=== PATIENT | male | born 1965 | race Caucasian/White ===

== ENCOUNTER 2022-07-15 21:05 | Emergency (ER) | payer BC, SELFPAY ==
--- NOTE | 2022-07-15 21:10 | ED.GENADULT ---
HPI - General Adult General Time Seen by Provider: 21:10 Date Seen: 07/15/22 Chief complaint: Nausea/Vomiting Stated complaint: Nausea and Vomiting post THC Time Seen by Provider: 07/15/22 21:09 Source: patient, EMS and RN notes reviewed Mode of arrival: EMS ([email or web address]) Limitations: no limitations History of Present Illness HPI narrative: Patient was brought in by [email or web address] and his came with. They had tried a new THC gummy that they had not taken before. It had 4735mg in it. He took a full 1, his only took a half. He started feeling dizzy, not spinning but really dizzy and nausea with it. He felt like he was hallucinating like he was in a dream. He does not want open is eyes as it makes him feel worse right now. He has no pain anywhere. Still has some nausea. No chest pain, no difficulty breathing. He just feels like he is in a dream. His states she mildly feels that way. They do not use gummies all the time but occasionally will do so. They have never tried this particular 1 before. They use the gum is sometimes to just help relax and sleep. In his past medical history he has high cholesterol, hypertension, anxiety. Related Data Home Medications Medication Instructions Recorded Confirmed atorvastatin 40 mg tablet 40 mg PO DAILY cholesterol 07/15/22 07/15/22 lisinopril 20 mg tablet 20 mg PO DAILY blood pressure 07/15/22 07/15/22 sertraline 50 mg tablet 50 mg PO QAM 07/15/22 07/15/22 Allergies Allergy/AdvReac Type Severity Reaction Status Date / Time No Known Drug Allergies Allergy Verified 07/15/22 21:14 Review of Systems Status of ROS: Reports: 10 or more systems reviewed and unremarkable except as noted in History and below PFSH PFSH Social History Smoking Status: Unknown if ever smoked Do you use any of these nicotine containing products: None How often do you have a drink containing alcohol: never AUDIT-C Alcohol total score: 0 Non-prescribed substance use: marijuana (any form) Non-prescribed substance use details: thc gummies Exam Const: Vital Signs, click to edit/add: Vital Signs - 24 hr 07/15/22 21:11 Temperature 98.1 F Pulse Rate [Left P ulse Oximeter] 84 Respiratory Rate 18 Blood Pressure [Ri ght Upper Arm] 110/72 Pulse Oximetry 98 Documenting provider has reviewed patient's vital signs: yes Common normals: average body habitus, oriented x3, no limitations, healthy appearing, alert and well nourished Other: Maybe seems slightly pale. Pupils are about 5 mm, reactive, mostly holds his eyes closed. Sclera with slight injection. Following commands, is able to speak with me and is pleasant. HENMT: Common normals: normocephalic, head/scalp atraumatic, hearing grossly normal bilaterally, external ears normal, external nose normal, moist oral mucous membranes, oropharynx normal, dentition normal and gingiva normal Head and scalp: normocephalic and atraumatic Nose: external nose normal External ear: external ears normal Eye: Common normals: PERRL, EOMs intact bilaterally and no scleral icterus Pupil: PERRL Neck & C-Spine: Common normals: full ROM, no lymphadenopathy and supple Resp: Common normals: normal respiratory effort, no retractions, no use of accessory muscles and clear to auscultation bilaterally Auscultation: clear to auscultation bilaterally Cardio: Common normals: regular rate, regular rhythm, S1 normal heart sound, S2 normal heart sound, no gallops, no clicks and no murmurs Rate: regular rate Rhythm: regular rhythm Heart sounds: S1 normal and S2 normal GI: Common normals: Normal to inspection, nondistended, normoactive bowel sounds present, soft to palpation, non-tender, no hepatosplenomegaly and no masses Palpation: soft and no hepatosplenomegaly Extremity: Common normals: normal to inspection Neuro: Common normals: oriented x3, CN's II-XII intact bilaterally, moves all extremities, no focal motor deficits and no sensory deficits noted Sensorium/orientation: alert Course Course Hospital Course: Have reviewed with patient and his that there really is nothing I can do to prevent the action of the THC he took. This is something he is going to just have to ride out. We can try some benzodiazepines, did warn them that they might make him feel even possibly worse but most people do find some relief with benzodiazepine use. Reevaluation(s) Reevaluation #1: Patient threw up his Ativan immediately per nursing staff. Will place IV, give NS bolus, zofran and IV ativan. May need to consider zyprexa for him. His told nursing staff that she was hoping that they could sleep it off here and go home in the morning. Time: 21:34 Reevaluation #2: Patient has the IV fluid running. His color is improving a bit. He states he just can not open his eyes or things just feel distorted. Makes him feel worse. He is having no pain anywhere. Time: 21:47 Reevaluation #3: Patient has been comfortably sleeping. Believe it is likely that he can transition to home. Time: 23:48 Vital Signs Vital signs: Initial Vital Signs Temperature 98.1 F 07/15/22 21:11 Temperature Source Temporal Artery Scan 07/15/22 21:11 Pulse Rate 84 07/15/22 21:11 Respiratory Rate 18 07/15/22 21:11 Blood Pressure 110/72 07/15/22 21:11 Blood Pressure Mean 84 07/15/22 21:11 Blood Pressure Position Sitting 07/15/22 21:11 Pulse Oximetry 98 07/15/22 21:11 Vital Signs Temperature 98.1 F 07/15/22 21:11 Pulse Rate 84 07/15/22 21:11 Respiratory Rate 18 07/15/22 21:11 Blood Pressure 110/72 07/15/22 21:11 Pulse Oximetry 98 07/15/22 21:11 Temperature 98.1 F 07/15/22 21:11 Pulse Rate 84 07/15/22 21:11 Respiratory Rate 18 07/15/22 21:11 Blood Pressure 110/72 07/15/22 21:11 Pulse Oximetry 98 07/15/22 21:11 Critical Care Time Critical Care Time Critical Care Time: No Discharge Plan Discharge Clinical Impression: Drug ingestion Patient Disposition: Home, Self-Care Condition: Stable Additional Instructions: Highly recommend that you do not use anymore of these gummies. Recommend going home and sleeping, would not have any alcohol, would not use any other substances. Activity Level: Activity as Tolerated Discharge Diet: Regular Prescriptions: No Action atorvastatin 40 mg tablet 40 mg PO DAILY lisinopril 20 mg tablet 20 mg PO DAILY sertraline 50 mg tablet 50 mg PO QAM Follow Up/Referrals: Ramon Bryant MD [Primary Care Provider] - Stand Alone Forms: [employer] Info Instructions
[2022-07-15 21:11] VITALS: BP 110/72; PULSE 84; RESP 18; TEMP 36.7; O2SAT 98; BMI 28.2
[2022-07-15] MEDS: 0.9 % SODIUM CHLORIDE 1000 ml 1,000 ML IV (21:24)
[2022-07-15] MEDS: LORazepam 1 MG TABLET PO (21:24)
[2022-07-15] MEDS: ONDANSETRON ODT 4 MG TAB PO (21:24)
[2022-07-15 22:00] VITALS: BP 94/61; PULSE 91; RESP 16; O2SAT 98
[2022-07-15 23:00] VITALS: BP 97/68; PULSE 87; RESP 16; O2SAT 97
[2022-07-16] VITALS: BP 101/76; PULSE 77; RESP 16; TEMP 36.6; O2SAT 98
[2022-07-16 00:25] VITALS: BP 101/76; PULSE 77; RESP 16; TEMP 36.6
== END 2022-07-16 00:33 | disposition home or self-care (01) ==
PROVIDERS: Emergency Provider Family Medicine; PCP Family Medicine
DX: R11.2 Nausea with vomiting, unspecified (principal); T40.711A Poisoning by cannabis, accidental (unintentional), initial encounter
CPT/HCPCS: 96360; 99283; A9270; J7030

== ENCOUNTER 2022-11-23 06:44 | Outpatient (CLI) | payer BC, SELFPAY | END 2022-11-23 06:45 | disposition home or self-care (01) | LOC: INJ CL 06:45 | PROVIDERS: PCP Family Medicine; Visit Provider Family Medicine | DX: M54.16 Radiculopathy, lumbar region (principal); M51.26 Other intervertebral disc displacement, lumbar region | CPT/HCPCS: 62323; J0702; Q9966 ==

== ENCOUNTER 2023-01-25 06:46 | Outpatient (CLI) | payer BC, SELFPAY | END 2023-01-25 06:47 | disposition home or self-care (01) | LOC: INJ CL 06:47 | PROVIDERS: PCP Family Medicine; Visit Provider Family Medicine | DX: M54.16 Radiculopathy, lumbar region (principal); M51.26 Other intervertebral disc displacement, lumbar region; M51.36 Other intervertebral disc degeneration, lumbar region | CPT/HCPCS: 62323; J1100; Q9966 ==